=== PATIENT | female | born 1940 | race Caucasian/White ===

== ENCOUNTER → 2018-03-16 | Outpatient (CLI) | payer MEDICARE ==
--- NOTE | 2018-03-16 14:21 | KCIC ---
CT HEAD WO CONTRAST dated 03/16/2018 2:30 PM Indication: Slurred speech, left-sided headache. Left facial droop pain, symptoms for 5 days. Comparison: No comparison is available. Technique: Contiguous axial imaging the head was performed from skull base to vertex. One or more of the following individualized dose reduction techniques were utilized for this examination: 1. Automated exposure control 2. Adjustment of the mA and/or kV according to patient size 3. Use of iterative reconstruction technique Findings: Ventricles and sulci are mildly prominent for age. No midline shift or mass effect. Minimal patchy low density in the deep/subcortical periventricular white matter. No hemorrhage or extra axial collection. Posterior fossa and brainstem unremarkable. Visualized paranasal sinuses and mastoid air cells are clear. No apparent calvarial abnormality. IMPRESSION: 1. No evidence of acute cranial hemorrhage or mass. 2. Mild chronic small vessel ischemic changes and atrophy. Electronically signed by: Albino Loredo MD (03/16/2018 2:18 PM) [facility]
== END | disposition home or self-care (01) ==
LOC: KCIC CT 13:51
PROVIDERS: ATTEND Nurse Practitioner Family
DX: I67.82 Cerebral ischemia (principal); G31.89 Other specified degenerative diseases of nervous system
CPT/HCPCS: 70450

== ENCOUNTER → 2019-06-12 | Outpatient (CLI) | payer MEDICARE ==
[~2019-06-12] MED LIST: REGADENOSON 0.4 MG/5 ML DISP.SYRIN. IV ONE
--- NOTE | 2019-06-12 09:42 | CARD ---
MR#: [id number] Date of Study: 06/12/2019 Ordering Physician: SHAYY SETH, Referring Physician: Melissa SEARS: Maritza Ontiveros APPROVED REPORT INDICATION Murmur 2D DIMENSIONS RVDd2.5 (2.9-3.5cm)Left Atrium(2D)2.8 (1.6-4.0cm) IVSd1.4 (0.7-1.1cm)Aortic Root(2D)2.1 (2.0-3.7cm) LVDd3.2 (3.9-5.9cm)LVOT Diameter1.9 (1.8-2.4cm) PWd1.1 (0.7-1.1cm)LVDs2.0 (2.5-4.0cm) FS (%) 37.2 %SV28.2 ml LVEF(%)68.5 (>50%) Aortic Valve AoV Peak Osman.185.3cm/sAoV VTI43.5cm AO Peak GR.13.7mmHgLVOT Peak Osman.107.2cm/s AO Mean GR.9mmHgAVA (VMAX)1.73cm2 HODA (VTI)1.38cm2 Mitral Valve MV E Trctlwvx27.9cm/sMV E Peak Gr.8mmHg MV DECEL [id number] A Ewtguvsd043.2cm/s MV E Mean Gr.3mmHgE/A Ratio0.6 Pulmonary Valve PV Peak Gxwsdvqt91.1cm/s Tricuspid Valve TR P. Knmfwcyb683gf/sRAP GSJOMSUG6lgVy TR Peak Gr.78idIhUOBZ14swDn Pulmonary Vein S1 Tksbqszg53.7cm/sD2 Qcyfigqb67.7cm/s PROCEDURE Type of Sedation : General Anesthesia Throughout the procedure, the blood pressure, pulse oximetry, cardiac rhythm, and rate were monitored . LEFT VENTRICLE The left ventricle is normal size. There is mild septal left ventricular hypertrophy. The left ventri cular systolic function is normal. The Ejection Fraction is 60-65%. There is normal LV segmental wall motion. Transmitral Doppler flow pattern is Grade I-abnormal relaxation pattern. RIGHT VENTRICLE The right ventricle is normal size. The right ventricular systolic function is normal. ATRIA The left atrium size is normal. The right atrium size is normal. The interatrial septum is intact wit h no evidence for an atrial septal defect or patent foramen ovale as noted on 2-D or Doppler imaging. AORTIC VALVE The aortic valve is moderately thickened but opens well. Doppler and Color Flow revealed no significa nt aortic regurgitation. There is no significant aortic valvular stenosis. MITRAL VALVE The mitral valve is calcified but opens well. There is no evidence of mitral valve prolapse. There is no mitral valve stenosis. Doppler and Color-flow revealed mild mitral regurgitation. TRICUSPID VALVE The tricuspid valve is normal in structure and function. Doppler and Color Flow revealed mild tricusp id regurgitation with an estimated PAP of 21 mmHg. There is no tricuspid valve stenosis. PULMONIC VALVE The pulmonic valve is not well visualized. Doppler and Color Flow revealed no pulmonic valvular regur gitation. GREAT VESSELS The aortic root is normal in size. The ascending aorta is normal in size. The IVC is normal in size a nd collapses >50% with inspiration. PERICARDIAL EFFUSION There is no evidence of significant pericardial effusion. Critical Notification Critical Value: No <Conclusion> The left ventricular systolic function is normal. The Ejection Fraction is 60-65%. There is normal LV segmental wall motion. Transmitral Doppler flow pattern is Grade I-abnormal relaxation pattern. Mild mitral regurgitation. Mild tricuspid regurgitation with an estimated PAP of 21 mmHg. There is no evidence of significant pericardial effusion. Signed by : Shayy Seth, Electronically Approved : 06/12/2019 09:42:20
--- NOTE | 2019-06-12 13:42 | RAD ---
MR#: [id number] Date of Study: 06/12/2019 Ordering Physician: SHAYY HUTTON Referring Physician: JEEVAN SEARS Tech: RT Nancy (Bright) (N) APPROVED REPORT Test Type: Pharmacological Stress Nurse/Tech: Daphnie Evangelista R.N. Test Indications: pre-procedure, BLANCA Cardiac History: No known cardiac ,obese Medications: See Electronic Medical Record Medical History: See Electronic Medical Record Resting ECG: SR Resting Heart Rate: 94 bpm Resting Blood Pressure: 166/51mmHg Pretest Chest Pain: No chest pain Nurse/Tech Notes S1S2, lungs CTA Consent: The procedure was explained to the patient in lay terms. Informed consent was witnessed. Donaldo eout was entered into [employer] History and Stress Test performed by RT Kendrick Cruz) (N) Pharm. Details Pharmacologic stress testing was performed using 0.4mg per 5ml of regadenoson given intravenously ove r 7-10 seconds. Stress Symptoms slight SOB POST EXERCISE Reason for Termination: Infusion complete Max HR: 130 bpm Max Blood Pressure: 154/61mmHg Blood Pressure response to exercise: Normal blood pressure response during stress. Heart Rate response to exercise: wnl Chest Pain: No. Arrhythmia: No. rare pac ST Change: Yes. non-diagnostic INTERPRETATION Stress EKG Conclusion: Baseline EKG showed sinus rhythm. Non-diagnostic changes at peak stress. No arrhythmias. Imaging Protocol IMAGE PROTOCOL: Rest Tc-99m/stress Tc-99m 1 day Rest: Stress: Viability: Radiopharm.Tc99m YokemovhtDv93g Sestamibi Dose10.9mCi 33mCi Duration 13min. 13min. Img Date 06/12/2019 06/12/2019 Inj-Img Oojq84fkx. 60min. Rest Admin Site:IV - Left WristAdministrator:JAVIER Freire Stress Admin Site: IV - Left WristAdministrator: Tom Schmidt POLICEMAN STRESS DATA End Diast. Vol.37.0mlLVEDV index BSA21.0ml End Syst. Vol.3.0mlLVESV index BSA2.0ml Myocardial Mass75.0gEject. Mzyugdju77.0% Stress Scores Regional WT0.00Summed WT1.00 Regional WM0.00Summed WM1.00 Study quality was good. Left Ventricular size was Normal at Rest and Stress. Lung uptake was . Left Ventricular ejection fraction is >80%. The rest and stress images show normal perfusion, normal contraction and thickening. LV Perf. Quant 17 Seg. SSS0.00 17 Seg. SRS0.00 17 Seg. SDS0.00 Stress Defect Extent (% LAD)0.00Rest Defect Extent (% LAD)0.00Rev. Defect Extent (% LAD)0.00 Stress Defect Extent (% LCX) 0.00Rest Defect Extent (% LCX)0.00Rev. Defect Extent (% LCX)0.00 Stress Defect Extent (% RCA)0.00Rest Defect Extent (% RCA)0.00Rev. Defect Extent (% RCA)0.00 Stress Defect Extent (% LAURA)0.00Rest Defect Extent (% LAURA)0.00Rev. Defect Extent (% LAURA)0.00 Conclusion 1. Regadenoson cardioisotope stress test did not show any evidence of ischemia or infarct. 2. Normal left ventricular systolic function with ejection fraction calculated at >80%. 3. Low risk for cardiac events. Signed by : Shayy Hutton, Electronically Approved : 06/12/2019 13:42:51
== END | disposition home or self-care (01) ==
LOC: ECHO 07:26
PROVIDERS: ATTEND Internal Medicine Cardiovascular Disease
DX: I08.1 Rheumatic disorders of both mitral and tricuspid valves (principal)
CPT/HCPCS: 78452; 93017; 93306; A9500; J2785